=== PATIENT | male | born 1975 | race African-American/Black ===

== ENCOUNTER 2024-01-04 14:38 | Emergency (ER) | payer MEDICAID ==
[~2024-01-04] VITALS: Ht 188 cm; Wt 77.0 kg
[2024-01-04 14:54] VITALS: O2SAT 100
[2024-01-04 17:00] LABS: BASOPHILS % 0.4 % (0.0-2.0); EOSINOPHILS % 3.4 % (0.0-5.0); HEMATOCRIT. 42.8 % (42.0-52.0); HEMOGLOBIN. 14.4 g/dL (14.0-18.0); LYMPHOCYTES % 39.2 % (20.0-50.0); MEAN CORPUSCULAR HEMOGLOBIN 30.4 pg (28.0-32.0); MEAN CORPUSCULAR HGB CONC 33.8 g/dL (31.0-37.0); MEAN CORPUSCULAR VOLUME 90.2 fL (80.0-94.0); MEAN PLATELET VOLUME 10.5 fl (7.4-10.4); PLATELET 133 x1000/uL (130-400); RED BLOOD CELL COUNT 4.74 mill/uL (4.7-6.1); RED CELL DISTRIBUTION WIDTH 13.1 % (11.6-14.6); WHITE BLOOD COUNT 5.6 x1000/uL (4.5-11.0)
[2024-01-04 17:01] LABS: CHLORIDE 107 mEq/L (98-107); POTASSIUM 4.4 mEq/L (3.5-5.1); SODIUM 140 mEq/L (136-145)
[2024-01-04 17:02] LABS: CALCIUM 9.3 mg/dL (8.7-10.4); CARBON DIOXIDE 29 mEq/L (21-32)
[2024-01-04 17:07] LABS: CREATININE 1.2 mg/dL (0.6-1.3); GLUCOSE 179 mg/dL (70-105); UREA NITROGEN BLOOD 17 mg/dL (9-23)
[2024-01-04] MEDS ORDERED: METF-416 MT (18:13)
[2024-01-04 18:37] VITALS: BP 120/70; PULSE 75; RESP 16; TEMP 36.78072; O2SAT 100
== END 2024-01-04 18:52 | disposition home or self-care (01) ==
LOC: ER 14:49
DX: E11.65 Type 2 diabetes mellitus with hyperglycemia (principal); Z76.0 Encounter for issue of repeat prescription; Z79.84 Long term (current) use of oral hypoglycemic drugs
CPT/HCPCS: 36415; 80048; 82962; 85025; 99283